=== PATIENT | male | born 1995 | race Caucasian/White ===

== ENCOUNTER 2022-08-04 21:34 | Emergency (ER) | payer OTHER ==
[2022-08-04 21:42] VITALS: BP 121/75; PULSE 70; RESP 18; TEMP 98.5; BMI 24.1
[2022-08-04] MEDS ORDERED: ACETAMINOPHEN 500 MG TABLET (FP) PO ONE (22:31)
[2022-08-04] MEDS ORDERED: IBUPROFEN 600 MG TABLET (FP) PO ONE ×2 (22:31→22:33)
[2022-08-04] MEDS ORDERED: ACETAMINOPHEN 500 MG TABLET (FP) ONE (22:34)
== END 2022-08-05 01:00 | disposition home or self-care (01) ==
LOC: JERFT 21:34
DX: Z04.1 Encounter for examination and observation following transport accident (principal); V89.2XXA Person injured in unspecified motor-vehicle accident, traffic, initial encounter; Y92.9 Unspecified place or not applicable
CPT/HCPCS: 70450-TC; 71101-TC-LT-FY; 99284-25